=== PATIENT | male | born 1955 | race Caucasian/White ===

== ENCOUNTER 2017-03-20 12:40 | Observation (INO) | payer OTHER ==
[~2017-03-20] VITALS: Ht 175.3 cm; Wt 102.0 kg
[2017-03-20] VITALS (9 sets, daily range): BP systolic 92–137; BP diastolic 56–85; PULSE 68–80; RESP 15–20; Ht 175.3 cm; Wt 102.0 kg
[~2017-03-20 12:40] MED LIST: AMLO-218 PO; CEFAZOLIN 1 GM INJ ONE; DEXAMETHASONE 4 MG/ML 1 ML INJ ONE; HYDR-3671 PO; LISI10TA2 PO; ONDANSETRON 4 MG INJ ONE; PRAV10TA43 PO
[2017-03-20] MEDS ORDERED: ASPI-664 PO (13:26)
[2017-03-20] MEDS ORDERED: CHOL400T10 PO (13:29)
[2017-03-20] MEDS ORDERED: SOD CHLORIDE 0.9% 1,000 ML IV SCH (14:00)
[2017-03-20] MEDS ORDERED: CEFAZOLIN 2 GM/50 ML (PMX) 50 ML IVPB ONE (14:00)
--- NOTE | 2017-03-20 14:25 | RADRPT ---
PROCEDURE: XR Chest AP portable CLINICAL INDICATION: Preop, hernia repair TECHNIQUE: An AP portable radiograph of the chest was submitted. COMPARISON: 05/27/2012 FINDINGS: Support Hardware: None Cardiovascular: The cardiovascular silhouette appears unremarkable except for persistent aortic tort uosity. Lung [place]: A suboptimal inspiration compresses lung parenchyma exaggerating the bibasilar intersti tial markings, but no alveolar infiltrate is evident. Pleural Spaces: No pneumothorax or pleural effusion is identified. Osseous Structures: The osseous structures appear intact. Soft Tissues: The soft tissues appear generous. IMPRESSION: 1. Aortic tortuosity without CHF. 2. Suboptimal inspiration compresses lung parenchyma with no discrete alveolar infiltrate evident. Physician Alyssa Date Time Electronically viewed and signed by Gris Clemente Physician on 03/20/2017 14:25 /
[2017-03-20] MEDS ORDERED: BUPIVACAINE 0.25% (MPF) 30 ML INJ ONE (16:36)
[2017-03-20] MEDS ORDERED: ROCURONIUM 50 MG INJ ONE (16:42)
[2017-03-20] MEDS ORDERED: LIDOCAINE 2% (SDV) 5 ML INJ ONE (16:42)
[2017-03-20] MEDS ORDERED: PROPOFOL 20 ML ONE (16:42)
[2017-03-20] MEDS ORDERED: FENTAnyl 50 MCG/ML VIAL ONE (16:48)
[2017-03-20] MEDS ORDERED: POLYMYXIN/BACITRACIN 1L IRRIG ONE (17:10)
[2017-03-20] MEDS ORDERED: BUPIVACAINE 0.25% (MPF) 30 ML INJ INJ ONE (17:30)
[2017-03-20] MEDS ORDERED: DIPHENHYDRAMINE 50 MG INJ IV PRN (17:30)
[2017-03-20] MEDS ORDERED: MEPERIDINE 25 MG INJ IV PRN (17:30)
[2017-03-20] MEDS ORDERED: HYDROmorphONE (0.2 MG/ML) 10ML SYG IV PRN ×2 (17:30)
[2017-03-20] MEDS ORDERED: OXYCODONE/ACETAMINOPHEN (5/325) TAB PO PRN (17:30)
[2017-03-20] MEDS ORDERED: METOCLOPRAMIDE 10 MG INJ IV PRN (17:30)
[2017-03-20] MEDS ORDERED: EPHEDrine SULFATE 50 MG/5 ML SYG IV PRN (17:30)
[2017-03-20] MEDS ORDERED: ONDANSETRON 4 MG INJ IV PRN ×2 (17:30→21:00)
[2017-03-20] MEDS ORDERED: FENTAnyl 50 MCG/ML VIAL IV PRN ×3 (17:30)
[2017-03-20] MEDS ORDERED: hydrALAzine 20 MG INJ IV PRN (17:30)
[2017-03-20] MEDS ORDERED: LABETALOL HCL 20MG INJ IV PRN (17:30)
[2017-03-20] MEDS ORDERED: NEOSTIGMINE 3 MG/3 ML SYRINGE ONE (17:36)
--- NOTE | 2017-03-20 17:36 | OPR ---
Date/Time of Note Date/Time of Note DATE: 03/20/17 TIME: 17:36 Operative Report Procedure Date: March 20, 2017 Preoperative Diagnosis incarcerated RIH Postoperative Diagnosis same Operation Performed open RIH repair with mesh right ilioinguinal block Surgeon: Myrtle HARRELL G. SEONG March 20, 2017 17:36
[2017-03-20] MEDS ORDERED: GLYCOPYRROLATE 0.4 MG INJ ONE (17:37)
[2017-03-20] MEDS: HYDROmorphONE (0.2 MG/ML) 10ML SYG IV PRN ×2 (17:55→18:11)
[2017-03-20] MEDS ORDERED: INSULIN ASPART [NOVOLOG] 3 ML PEN SC ONE (18:00)
[2017-03-20] MEDS ORDERED: HYDROCODONE/APAP (5/325) TAB PO ONE (18:00)
--- NOTE | 2017-03-20 18:00 | OPPN ---
Date/Time of Note Date/Time of Note DATE: 03/20/17 TIME: 17:59 Post-Anesthesia Notes Post-Anesthesia Note Last documented vital signs Vital Signs Date Time Temp Pulse Resp B/P Pulse Ox O2 Delivery O2 Flow Rate FiO2 03/20/17 17:47 98.9 03/20/17 17:45 78 18 116/67 90 Room Air Activity: WNL Respiratory function: WNL Cardiovascular function: WNL Mental status: Baseline Pain reasonably controlled: Yes Hydration appropriate: Yes Nausea/Vomiting absent: Yes RIK AGUSTIN March 20, 2017 18:00
--- NOTE | 2017-03-20 18:06 | OPR ---
DATE OF OPERATION: 03/20/2017 INDICATION: This is a 62-year-old male with a right inguinal hernia. He requests surgical repair. Risks, alternatives, benefits, and personnel were discussed with the patient. The patient expresse d understanding and consents to the operation. PREOPERATIVE DIAGNOSIS: Right inguinal hernia. POSTOPERATIVE DIAGNOSIS: Incarcerated right inguinal hernia. PROCEDURES: 1. Open incarcerated right inguinal hernia repair with large size UltraPro hernia system mesh. 2. Right ilioinguinal block. SURGEON: Georgette Do MD SPECIMEN: None. COMPLICATIONS: None. ANESTHESIA: General. DESCRIPTION OF PROCEDURE: The patient was taken to the OR and prepped and draped in the usual steri le fashion. Surgical timeout was performed. IV antibiotics were given. Right inguinal oblique inc ision was made with a 10 blade. Dissection cautery was carried down to the external oblique fascia which was opened with a 15 blade. This incision is extended medial inferiorly and lateral superiorl y with Metzenbaum scissors. Cord structures were identified and encircled with a Ye drain. In direct hernia was reduced manually. The disk portion of the UltraPro hernia system mesh is secured in place with running 0 Prolene from the pubic tubercle along the shelving edge of the inguinal liga ment and superiorly to the internal oblique with interrupted 3-0 Vicryl. Onlay mesh was secured in a similar fashion with a running 0 Prolene from the pubic tubercle along the shelving edge of the in guinal ligament. Straps were created and reapproximated with interrupted 0 plain to recreate the in guinal ring. Onlay mesh was secured to the internal oblique with interrupted 3-0 Vicryl. External oblique fascia was closed with running 0 Vicryl. Kalie's was closed with interrupted 3-0 Vicryl. Skin was closed using skin matilda. Local anesthesia was injected into the incision line. A right ilioinguinal block was performed by identifying the ASIS, and 2 cm medial and inferior to that site in a fanning motion, local anesthesia was injected. Dry dressings were applied. Dictated By: GEORGETTE CUMMINGS/JOMAR Conf#: [id number] DID#: [id number]
[2017-03-20] MEDS ORDERED: DIPHENHYDRAMINE 25 MG CAP PO ONE (19:30)
[2017-03-21 00:05] VITALS: BP 119/60; RESP 18
[2017-03-21 00:30] VITALS: BP 120/62; PULSE 60; RESP 18
[2017-03-21] MEDS: morphine 2 MG INJ IV PRN ×2 (02:06→05:32)
[2017-03-21] MEDS ORDERED: DIPHENHYDRAMINE 25 MG CAP PO PRN (02:30)
[2017-03-21 05:50] LABS: ADD SCAN DIFF NO
[2017-03-21 05:55] LABS: BASOPHIL # 0.1 10^3/ul (0.0-0.1); BASOPHILS % 0.5 % (0.0-2.0); EOSINOPHILS # 0.1 10^3/ul (0.0-0.5); HEMATOCRIT 45.1 % (42.0-52.0); HEMOGLOBIN 14.9 g/dl (14.0-18.0); LYMPHOCYTES # 2.1 10^3/ul (0.8-2.9); LYMPHOCYTES % 16.8 % (15.0-51.0); MEAN CORPUSCULAR HEMOGLOBIN 29.7 pg (29.0-33.0); MEAN PLATELET VOLUME 9.9 fl (7.4-10.4); MONOCYTE # 1.2 10^3/ul (0.3-0.9); MONOCYTES % 9.8 % (0.0-11.0); NEUTROPHIL # 8.9 10^3/ul (1.6-7.5); NEUTROPHILS % 71.4 % (39.0-77.0); PLATELET COUNT 213 10^3/UL (140-415); RED BLOOD COUNT 5.01 10^6/ul (4.70-6.10); RED CELL DISTRIBUTION WIDTH 13.2 % (11.5-14.5); WHITE BLOOD COUNT 12.4 10^3/ul (4.8-10.8)
[2017-03-21 06:23] LABS: POTASSIUM 4.3 mmol/L (3.5-5.1)
[2017-03-21 06:26] LABS: CREATININE 1.41 mg/dl (0.61-1.24)
[2017-03-21 08:06] VITALS: BP 128/72; RESP 16
[2017-03-21] MEDS ORDERED: HYDROmorphONE 1 MG/ML SYG IM STA (09:36)
[2017-03-21] MEDS ORDERED: HYDROmorphONE 1 MG/ML SYG IV PRN (10:00)
--- NOTE | 2017-03-21 12:04 | PN ---
Date/Time of Note Date/Time of Note DATE: 03/21/17 TIME: 12:03 Assessment/Plan VTE Prophylaxis VTE Prophylaxis Intervention: SCD's Lines/Catheters IV Catheter Type (from Nrsg): Peripheral IV Urinary Cath still in place: No Assessment/Plan Chief Complaint/Hosp Course s/p RIH repair with mesh but with pain control issues and urinary retention issues may need another day of obs before ready to go home Problems: Assessment/Plan continue current care Subjective 24 Hr Interval Summary Free Text/Dictation had some pain control issues and dizziness yesterday after anesthesia, additionally had some urinary retention issues Exam/Review of Systems Vital Signs Vitals Vital Signs Date Time Temp Pulse Resp B/P Pulse Ox O2 Delivery O2 Flow Rate FiO2 03/21/17 08:06 98.0 90 16 128/72 96 03/21/17 00:30 Room Air Intake and Output 03/20/17 03/20/17 03/21/17 15:00 23:00 07:00 Intake Total 900 ml 400 ml Output Total 10 ml 0 ml Balance 890 ml 400 ml Exam c/d/i Results Result Diagram: 03/21/17 0438 03/21/17 0438 Results 24 hrs Laboratory Tests Test 03/20/17 14:21 03/20/17 21:51 03/21/17 04:38 Bedside Glucose 82 129 White Blood Count 12.4 #H Red Blood Count 5.01 Hemoglobin 14.9 Hematocrit 45.1 Mean Corpuscular Volume 90.0 Mean Corpuscular Hemoglobin 29.7 Mean Corpuscular Hemoglobin Concent 33.0 Red Cell Distribution Width 13.2 Platelet Count 213 Mean Platelet Volume 9.9 # Neutrophils % 71.4 Lymphocytes % 16.8 Monocytes % 9.8 Eosinophils % 1.0 Basophils % 0.5 Nucleated Red Blood Cells % 0.0 Neutrophils # 8.9 H Lymphocytes # 2.1 Monocytes # 1.2 H Eosinophils # 0.1 Basophils # 0.1 Nucleated Red Blood Cells # 0.0 Sodium Level 139 Potassium Level 4.3 Chloride Level 98 Carbon Dioxide Level 26 Anion Gap 19 H Blood Urea Nitrogen 19 Creatinine 1.41 H Glucose Level 93 Calcium Level 9.0 Medications Medications Current Medications Morphine Sulfate (morphine) 2 mg Q2H PRN IV PAIN Last administered on t 05:32; Admin Dose 2 MG; Start 03/20/17 at 21:00 Ondansetron HCl (Zofran Inj) 4 mg Q6H PRN IV NAUSEA AND/OR VOMITING; Start at 21:00 Diphenhydramine HCl (Benadryl) 25 mg Q6H PRN PO ITCHING Last administered on t 02:29; Admin Dose 25 MG; Start 03/21/17 at 02:30 Hydromorphone HCl (Dilaudid) 0.5 mg Q4H PRN IV PAIN; Start 03/21/17 at 10:00 Myrtle HARRELL March 21, 2017 12:04
--- NOTE | 2017-03-21 12:49 | HP ---
Date/Time of Note Date/Time of Note DATE: 03/21/17 TIME: 12:46 Assessment/Plan VTE Prophylaxis VTE Prophylaxis Intervention: other Lines/Catheters IV Catheter Type (from Nrs): Peripheral IV Urinary Cath still in place: No Assessment/Plan Chief Complaint/Hosp Course 1) hernia - s/p repair 2) sore throat - monitor, probably due to intubation for surgery 3) urinary obstruction - monitor - try flomax Problems: HPI/ROS Admit Date/Time Admit Date/Time March 20, 2017 at 20:37 Hx of Present Illness Patient with hypertension and hypercholesterolemia comes in for hernia repair. Patient tolerated the procedure but is now having difficulty with urinary obstruction and sore throat. Patient is admitted for further observation. Patient has noted in the past to have nocturia 1-2 times per night but never had urinary obstruction. PMH/Family/Social Past Medical History Medical History: high cholesterol, hypertension Social History Smoking Status: Never smoker Exam/Review of Systems Vital Signs Vitals Vital Signs Date Time Temp Pulse Resp B/P Pulse Ox O2 Delivery O2 Flow Rate FiO2 03/21/17 08:06 98.0 90 16 128/72 96 03/21/17 00:30 Room Air Intake and Output 03/20/17 03/20/17 03/21/17 15:00 23:00 07:00 Intake Total 900 ml 400 ml Output Total 10 ml 0 ml Balance 890 ml 400 ml Exam Constitutional: well developed Head: atraumatic, normocephalic Neck: supple Respiratory: clear to auscultation Cardiovascular: regular rate and rhythm Gastrointestinal: non-tender, soft Extremities: normal pulses Labs Result Diagram: 03/21/17 0438 03/21/17 0438 Medications Medications Current Medications Ondansetron HCl (Zofran Inj) 4 mg Q6H PRN IV NAUSEA AND/OR VOMITING; Start at 21:00 Diphenhydramine HCl (Benadryl) 25 mg Q6H PRN PO ITCHING Last administered on t 02:29; Admin Dose 25 MG; Start 03/21/17 at 02:30 Hydromorphone HCl (Dilaudid) 0.5 mg Q4H PRN IV PAIN; Start 03/21/17 at 12:30 ELIZABET CABEZAS March 21, 2017 12:49
[2017-03-21] MEDS: HYDROmorphONE 1 MG/ML SYG IV PRN ×4 (12:51→22:18)
[2017-03-21] MEDS: ASPIRIN (EC) 81 MG TAB PO SCH (14:53)
[2017-03-21] MEDS: LISINOPRIL 10 MG TAB PO SCH (14:54)
[2017-03-21] MEDS: CHOLECALCIFEROL 400 UNITS TAB PO SCH (14:54)
[2017-03-21] MEDS: AMLODIPINE 10 MG TAB PO SCH (14:59)
[2017-03-21] MEDS ORDERED: HYDROmorphONE 1 MG/ML SYG IV STA (15:40)
[2017-03-21] MEDS: AL HYDROX/MG HYDROX/SIMETH 30 ML CUP PO PRN (17:47)
[2017-03-21] MEDS: PANTOPRAZOLE (EC) 40 MG TAB PO SCH (19:02)
[2017-03-21 19:48] VITALS: BP 119/68; RESP 20
[2017-03-21] MEDS: TAMSULOSIN (SR) 0.4 MG CAP PO SCH (21:06)
[2017-03-21] MEDS: ATORVASTATIN 10 MG TAB PO SCH (21:06)
[2017-03-22] MEDS: HYDROmorphONE 1 MG/ML SYG IV PRN ×7 (01:50→22:02)
[2017-03-22] MEDS: PANTOPRAZOLE (EC) 40 MG TAB PO SCH ×2 (05:28→19:02)
[2017-03-22 08:02] VITALS: BP 126/76; RESP 18
[2017-03-22] MEDS: AMLODIPINE 10 MG TAB PO SCH (08:43)
[2017-03-22] MEDS: ASPIRIN (EC) 81 MG TAB PO SCH (08:43)
[2017-03-22] MEDS: CHOLECALCIFEROL 400 UNITS TAB PO SCH (08:43)
[2017-03-22] MEDS: LISINOPRIL 10 MG TAB PO SCH (08:43)
--- NOTE | 2017-03-22 13:11 | PN ---
Date/Time of Note Date/Time of Note DATE: 03/22/17 TIME: 13:10 Assessment/Plan VTE Prophylaxis VTE Prophylaxis Intervention: other Lines/Catheters IV [facility]ter Type (from [facility] Saline Lock Urinary Cath still in place: No Assessment/Plan Chief Complaint/Hosp Course 1) hernia - s/p repair 2) sore throat - monitor, probably due to intubation for surgery 3) urinary obstruction - monitor - try flomax Problems: Subjective 24 Hr Interval Summary Free Text/Dictation Patient is urination again without difficulty, still weak though Exam/Review of Systems Vital Signs Vitals Vital Signs Date Time Temp Pulse Resp B/P Pulse Ox O2 Delivery O2 Flow Rate FiO2 03/22/17 08:02 98.7 99 18 126/76 100 03/21/17 00:30 Room Air Intake and Output 03/21/17 03/21/17 03/22/17 15:00 23:00 07:00 Intake Total 200 ml 250 ml 1150 ml Output Total 500 ml 500 ml 1000 ml Balance -300 ml -250 ml 150 ml Exam Constitutional: well developed Head: atraumatic, normocephalic Neck: jvd, supple Respiratory: clear to auscultation Cardiovascular: regular rate and rhythm Gastrointestinal: non-tender, soft Extremities: normal pulses Results Result Diagram: 03/21/17 0438 03/21/17 0438 Medications Medications Current Medications Ondansetron HCl (Zofran Inj) 4 mg Q6H PRN IV NAUSEA AND/OR VOMITING; Start at 21:00 Diphenhydramine HCl (Benadryl) 25 mg Q6H PRN PO ITCHING Last administered on 02:29; Admin Dose 25 MG; Start 03/21/17 at 02:30 Amlodipine Besylate (Norvasc) 10 mg DAILY PO Last administered on 03/22/17 08: 43; Admin Dose 10 MG; Start 03/21/17 at 13:00 Aspirin (Halfprin) 81 mg DAILY PO Last administered on 03/22/17 08:43; Admin Dose 81 MG; Start 03/21/17 at 13:00 Cholecalciferol (Vitamin D) 800 units DAILY PO Last administered on 03/22/17 08:43; Admin Dose 800 UNITS; Start 03/21/17 at 14:00 Hydralazine HCl (Apresoline) 25 mg TID PO Last administered on 03/22/17 08:44 ; Admin Dose 25 MG; Start 03/21/17 at 13:00 Lisinopril (Zestril) 10 mg DAILY PO Last administered on 03/22/17 08:43; Admin Dose 10 MG; Start 03/21/17 at 13:00 Atorvastatin Calcium (Lipitor) 10 mg HS PO Last administered on 03/21/17 21:06 ; Admin Dose 10 MG; Start 03/21/17 at 21:00 Tamsulosin HCl (Flomax) 0.4 mg HS PO Last administered on 03/21/17 21:06; Admin Dose 0.4 MG; Start 03/21/17 at 21:00 Hydromorphone HCl (Dilaudid) 1 mg Q3H PRN IV PAIN Last administered on 12:25; Admin Dose 1 MG; Start 03/21/17 at 18:00 Pantoprazole (Protonix Tab) 40 mg BID@06,18 PO Last administered on 03/22/17 05:28; Admin Dose 40 MG; Start 03/21/17 at 18:00 Al Hydrox/Mg Hydrox/Simethicone (Mag-Al Plus) 30 ml Q4H PRN PO HEARTBURN Last administered on 03/21/17 17:47; Admin Dose 30 ML; Start 03/21/17 at 17:30 ELIZABET CABEZAS March 22, 2017 13:11
--- NOTE | 2017-03-22 13:25 | CONS ---
DATE OF ADMISSION: 03/20/2017 DATE OF CONSULTATION: 03/22/2017 REQUESTING PHYSICIAN: Dr. Anders and Dr. Najma Kirby REASON FOR CONSULTATION: Urinary retention, postoperative right inguinal hernia repair. HISTORY OF PRESENT ILLNESS: The patient is a 62-year-old male who was admitted to the hospital on 0 03/20/2017, underwent a right inguinal hernia and, in the postoperative period, the patient was not a ble to urinate, he had to be catheterized every 6 hours. Therefore, a urological consultation was r equested. The patient states that usually at home he urinates 1 to 2 times at night and during the day he urinates 3 times. His urinary stream is medium. He denies any dysuria, no hematuria, and no prior urinary retention or urinary symptoms that required any treatment. He, however, does have a history of hypertension and high cholesterol. SOCIAL HISTORY: He does not smoke, does not drink any alcohol. MEDICATIONS: The medications that he is on presently: 1. Since he was not able to urinate, he was started on tamsulosin yesterday at 0.4 mg at bedtime da antonia. 2. He is also on atorvastatin 10 mg daily. 3. Dilaudid for the pain. 4. Protonix 40 mg twice a day. 5. Mag-al Plus p.r.n. for heartburn. 6. Vitamin D. 7. Norvasc 10 mg daily. 8. Aspirin 81 mg daily. 9. Apresoline 25 mg 3 times a day. 10. Lisinopril 10 mg daily. 11. Benadryl p.r.n. 12. Zofran p.r.n. PHYSICAL EXAMINATION: GENERAL: Reveals a well-developed male who complains of pain from his surgical site. He weighs 102 kilograms. He is 69 inches tall. VITAL SIGNS: Temperature is 98.7, pulse 99, respiration 18, blood pressure 126/76. HEAD AND NECK: Unremarkable. ABDOMEN: Obese. There is a scar in the right inguinal area with matilda from his recent right ingu inal hernia repair. GENITALIA: External genitalia are normal. RECTAL: Examination revealed soft prostate that does not appear to be enlarged. EXTREMITIES: Reveal no edema. LABORATORY DATA: CBC shows a white count of 12.4, hemoglobin 14.9, hematocrit 35.1. BUN is 19, cre atinine is 1.41. Electrolytes are normal. Urine culture: No growth after 24 hours. IMPRESSION: Urinary retention postop, however, the patient is improving and he just voided about an hour ago and I did a bladder scan on him and the bladder scan showed the bladder has only 48 mL per minute. Therefore, at the present, he is not on any urinary retention; therefore from a urological standpoint, the patient may be discharged to home today and it would be better that he continue the Tamsulosin 0.4 mg daily for the next month so to allow him to heal and facilitate his voiding. Dictated By: HARISH SAUL/JOMAR Conf#: [id number] DID#: [id number]
[2017-03-22] MEDS: AL HYDROX/MG HYDROX/SIMETH 30 ML CUP PO PRN ×2 (14:33→20:12)
--- NOTE | 2017-03-22 16:48 | PN ---
DATE: 03/22/2017 SUBJECTIVE: Status post right inguinal hernia operation 2 days ago, status post urinary retention post-operation. Dr. Do has asked me to see the patient yesterday and today following for him. Apparently, yesterday the patient had urinary retention and he was in too much pain. They had to straight catheterize him, actually the nurse had to straight catheterize him every 6 hours, and I have requested a consultation with Dr. Riddle, Urology, today. Today, patient has been able to urinate and Dr. Riddle has seen the patient, but he does not have any problem with urination, but he is still suffering a lot of pain in the site of the operation. OBJECTIVE: VITAL SIGNS: Temperature 98.7, 99 heart rate, respirations 18, blood pressure 126/76, saturation 100% on room air. LABS: No new labs today. PHYSICAL EXAMINATION: Wound is clean. PLAN: Since the patient is not controlled well for pain, we will try to keep him overnight for better control of the pain and then patient will be discharged home tomorrow hopefully. Dictated By: EZ METZ/JOMAR Conf#: [id number] DID#: [id number] MTDD
[2017-03-22 20:01] VITALS: BP 135/97; RESP 16
[2017-03-22] MEDS: TAMSULOSIN (SR) 0.4 MG CAP PO SCH (20:12)
[2017-03-22] MEDS: ATORVASTATIN 10 MG TAB PO SCH (20:12)
[2017-03-23] MEDS: AL HYDROX/MG HYDROX/SIMETH 30 ML CUP PO PRN ×4 (00:05→12:50)
[2017-03-23] MEDS: HYDROmorphONE 1 MG/ML SYG IV PRN (01:56)
[2017-03-23] MEDS: HYDROCODONE/APAP (5/325) TAB PO PRN ×3 (02:09→14:32)
[2017-03-23 05:18] LABS: ADD SCAN DIFF NO
[2017-03-23 05:23] LABS: BASOPHIL # 0.1 10^3/ul (0.0-0.1); BASOPHILS % 0.6 % (0.0-2.0); EOSINOPHILS # 0.2 10^3/ul (0.0-0.5); EOSINOPHILS % 1.6 % (0.0-7.0); HEMATOCRIT 46.4 % (42.0-52.0); HEMOGLOBIN 15.7 g/dl (14.0-18.0); LYMPHOCYTES % 16.9 % (15.0-51.0); MEAN CORPUSCULAR HEMOGLOBIN 29.9 pg (29.0-33.0); MEAN CORPUSCULAR HGB CONC 33.8 g/dl (32.0-37.0); MEAN CORPUSCULAR VOLUME 88.4 fl (82.0-101.0); MEAN PLATELET VOLUME 9.9 fl (7.4-10.4); MONOCYTE # 1.3 10^3/ul (0.3-0.9); MONOCYTES % 10.8 % (0.0-11.0); NEUTROPHIL # 8.2 10^3/ul (1.6-7.5); NEUTROPHILS % 69.7 % (39.0-77.0); PLATELET COUNT 225 10^3/UL (140-415); RED BLOOD COUNT 5.25 10^6/ul (4.70-6.10); RED CELL DISTRIBUTION WIDTH 12.8 % (11.5-14.5); WHITE BLOOD COUNT 11.7 10^3/ul (4.8-10.8)
[2017-03-23 05:56] LABS: CALCIUM 11.1 mg/dl (8.4-10.2); CREATININE 1.48 mg/dl (0.61-1.24); POTASSIUM 4.4 mmol/L (3.5-5.1)
[2017-03-23] MEDS: PANTOPRAZOLE (EC) 40 MG TAB PO SCH (06:14)
[2017-03-23 08:00] VITALS: BP 134/80; RESP 18
[2017-03-23] MEDS: AMLODIPINE 10 MG TAB PO SCH (08:33)
[2017-03-23] MEDS: ASPIRIN (EC) 81 MG TAB PO SCH (08:33)
[2017-03-23] MEDS: LISINOPRIL 10 MG TAB PO SCH (08:34)
[2017-03-23] MEDS: CHOLECALCIFEROL 400 UNITS TAB PO SCH (08:34)
--- NOTE | 2017-03-23 10:37 | DS ---
Date/Time of Note Date/Time of Note DATE: 03/23/17 TIME: 10:34 Discharge Summary Admission/Discharge Info Admit Date/Time March 20, 2017 at 20:37 Discharge Date/Time 03/23/17 Final Diagnosis 1) inguinal hernia 2) urinary incontinence Hx of Present Illness Patient with hypertension and hypercholesterolemia comes in for hernia repair. Patient tolerated the procedure but is now having difficulty with urinary obstruction and sore throat. Patient is admitted for further observation. Patient has noted in the past to have nocturia 1-2 times per night but never had urinary obstruction. Hospital Course Patient underwent hernia repair for inguinal hernia. Patient tolerated the procedure but his recovery was complicated by urinary obstruction. The obstruction resolved within 24 hours. Patient was given flomax but he felt that the problem was related to the anesthesia related to the surgery and not BPH. Once felt to be stable per surgery, he was sent home. 1) hernia - s/p repair 2) sore throat - stable 3) urinary obstruction - resolved Home Meds Reported Medications Cholecalciferol* (Vitamin D*) 400 Unit Tablet, 800 UNIT PO DAILY, TAB 03/20/17 Aspirin* (Aspirin* EC) 81 Mg Tablet.dr, 81 MG PO DAILY, TAB 03/20/17 Pravastatin Sodium* (Pravastatin Sodium*) 10 Mg Tablet, 10 MG PO HS, TAB 10/14/14 Hydralazine Hcl* (Hydralazine Hcl*) 25 Mg Tab, 25 MG PO TID, TAB 10/14/14 Lisinopril* (Lisinopril*) 10 Mg Tablet, 10 MG PO DAILY, TAB 10/14/14 Amlodipine Besylate* (Norvasc*) 10 Mg Tablet, 10 MG PO DAILY, TAB 10/14/14 Primary Care Provider Geo Kilpatrick Pending Labs Laboratory Tests Test 03/23/17 04:34 White Blood Count 11.710^3/ul (4.8-10.8) Red Blood Count 5.2510^6/ul (4.70-6.10) Hemoglobin 15.7g/dl (14.0-18.0) Hematocrit 46.4% (42.0-52.0) Mean Corpuscular Volume 88.4fl (82.0-101.0) Mean Corpuscular Hemoglobin 29.9pg (29.0-33.0) Mean Corpuscular Hemoglobin Concent 33.8g/dl (32.0-37.0) Red Cell Distribution Width 12.8% (11.5-14.5) Platelet Count 48224^3/UL (140-415) Mean Platelet Volume 9.9fl (7.4-10.4) Neutrophils % 69.7% (39.0-77.0) Lymphocytes % 16.9% (15.0-51.0) Monocytes % 10.8% (0.0-11.0) Eosinophils % 1.6% (0.0-7.0) Basophils % 0.6% (0.0-2.0) Nucleated Red Blood Cells % 0.0/100WBC (0.0-0.0) Neutrophils # 8.210^3/ul (1.6-7.5) Lymphocytes # 2.010^3/ul (0.8-2.9) Monocytes # 1.310^3/ul (0.3-0.9) Eosinophils # 0.210^3/ul (0.0-0.5) Basophils # 0.110^3/ul (0.0-0.1) Nucleated Red Blood Cells # 0.010^3/ul (0.0-0.0) Sodium Level 140mmol/L (135-144) Potassium Level 4.4mmol/L (3.5-5.1) Chloride Level 95mmol/L (97-110) Carbon Dioxide Level 32mmol/L (21-31) Anion Gap 17 (8-16) Blood Urea Nitrogen 27mg/dl (7-20) Creatinine 1.48mg/dl (0.61-1.24) Glucose Level 125mg/dl (70-220) Calcium Level 11.1mg/dl (8.4-10.2) ELIZABET CABEZAS March 23, 2017 10:37
== END 2017-03-23 14:39 | disposition home or self-care (01) ==
LOC: SDS 12:40 → MS1 20:37 → SDS 20:37 → MS1 20:50
PROVIDERS: ADMIT Surgery; ATTEND Surgery
DX: N39.498 Other specified urinary incontinence (principal); K40.30 Unilateral inguinal hernia, with obstruction, without gangrene, not specified as recurrent; J02.9 Acute pharyngitis, unspecified
CPT/HCPCS: 49507; 71010; 80048; 82962; 85025; 87086; 96372; 96374; 96375; 96376; C1781; J0690; J1100; J1170; J2175; J2270; J2405; J2710; J2765; J3010; Z7500; Z7512; Z7610; A4310; G0378

== ENCOUNTER 2017-11-03 10:56 | Emergency (ER) | END 2017-11-03 16:47 | disposition home or self-care (01) ==

== ENCOUNTER 2019-06-07 11:43 | Day surgery (SDC) | payer OTHER ==
[~2019-06-07] VITALS: Ht 175.3 cm; Wt 99.6 kg
[~2019-06-07 11:43] MED LIST changes: +ALBU18HF INHALATION; +ASPI-817 PO; -CEFAZOLIN 1 GM INJ ONE; +CHOL400T10 PO; -DEXAMETHASONE 4 MG/ML 1 ML INJ ONE; +DOXY100T20 PO; +GUAI5SYR2 PO; -ONDANSETRON 4 MG INJ ONE; +PRED20TA PO; +PRILOSEC
[2019-06-07 12:59] VITALS: Ht 175.3 cm; Wt 99.6 kg
[2019-06-07 14:07] VITALS: BP 138/82; PULSE 68; RESP 16
--- NOTE | 2019-06-07 14:11 | PREAC ---
Date/Time of Note Date/Time of Note DATE: 06/07/19 TIME: 14:09 Anesthesia Eval and Record Evaluation Time Pre-Procedure Interview DATE: 06/07/19 TIME: 14:09 Age 64 Sex male NPO: 8 hrs Preoperative diagnosis SCREENING Planned procedure COLONOSCOPY Past Medical History Past Medical History: Includes Cardio: HTN, Dyslipidemia Endo: Diabetes Neuro: CVA Surgery & Anesthesia Issues No known issue Meds Anticoagulation: No Beta Tung within 24 hr: No Reason Beta Tung not given: Pt. not on B-Tung Reported Medications [Prilosec] No Conflict Check 06/07/19 Aspirin* (Aspirin* EC) 81 Mg Tablet.dr, 81 MG PO DAILY, TAB 03/20/17 Hydralazine Hcl* (Hydralazine Hcl*) 25 Mg Tab, 25 MG PO TID, TAB 10/14/14 Lisinopril* (Lisinopril*) 10 Mg Tablet, 10 MG PO DAILY, TAB 10/14/14 Discontinued Reported Medications Cholecalciferol* (Vitamin D*) 400 Unit Tablet, 800 UNIT PO DAILY, TAB 03/20/17 Pravastatin Sodium* (Pravastatin Sodium*) 10 Mg Tablet, 10 MG PO HS, TAB 10/14/14 Amlodipine Besylate* (Norvasc*) 10 Mg Tablet, 10 MG PO DAILY, TAB 10/14/14 Discontinued Scripts Guaifenesin-Dextromethorphan* (Robitussin* DM) 100MG/10MG/5ML Syrup, 10 ML PO Q4H PRN for COUGH, #20 ML Prov:LIVAN ROY DO 11/03/17 Doxycycline Hyclate* (Doxycycline Hyclate*) 100 Mg Tablet.dr, 100 MG PO BID, #20 TAB Prov:GREENROBERTLIVAN DO 11/03/17 Prednisone* (Prednisone*) 20 Mg Tab, 40 MG PO DAILY, #20 TAB Prov:GREENLIVAN DO 11/03/17 Albuterol Sulfate* (Ventolin HFA*) 18 Gm Hfa.aer.ad, 2 PUFF INHALATION Q4H, #1 INHALER Prov:GREENELHAMLIVAN DO 11/03/17 Meds reviewed: Yes Allergies Coded Allergies: No Known Allergy (Unverified , 11/03/17) Allergies Reviewed: Yes Labs/Studies Labs Reviewed: Reviewed by anesthesiologist test: N/A Pre-procedure Exam Last vitals Vital Signs Date Temp Pulse Resp B/P (MAP) Pulse Ox O2 O2 Flow FiO2 Time Delivery Rate 06/07/19 97.8 68 16 138/82 97 Room Air 14:07 (100) Airway: Adequate mouth opening, Adequate thyromental dist Mallampati: Mallampati II Teeth: Normal Lung: Normal Heart: Normal ASA Physical Status ASA physical status: 3 Emergency: None Planned Anesthetic General/MAC: MAC Planned Pain Management Parenteral pain med Pre-operative Attestations Prior to commencing anesthesia and surgery, the patient was re-evaluated, there was verification of: *The patient's identity *The results of appropriate recent lab work and preoperative vital signs *The above evaluation not changing prior to induction *Anesthetic plan, risk benefits, alternative and complications discussed with patient/family; questions answered; patient/family understands, accepts and wishes to proceed. RIK AGUSTIN Jun 07, 2019 14:11
--- NOTE | 2019-06-07 15:44 | PAC ---
Date/Time of Note Date/Time of Note DATE: 06/07/19 TIME: 15:44 Post-Anesthesia Notes Post-Anesthesia Note Last documented vital signs Vital Signs Date Temp Pulse Resp B/P (MAP) Pulse Ox O2 O2 Flow FiO2 Time Delivery Rate 06/07/19 97.8 68 16 138/82 97 Room Air 1544 (100) Activity: WNL Respiratory function: WNL Cardiovascular function: WNL Mental status: Baseline Pain reasonably controlled: Yes Hydration appropriate: Yes Nausea/Vomiting absent: Yes RIK AGUSTIN Jun 07, 2019 15:44
[2019-06-07] MEDS ORDERED: LABETALOL HCL 20MG INJ IV PRN (16:00)
[2019-06-07] MEDS ORDERED: ONDANSETRON 4 MG INJ IV PRN (16:00)
[2019-06-07] MEDS ORDERED: FENTAnyl 50 MCG/ML VIAL IV PRN (16:00)
[2019-06-07] MEDS ORDERED: EPHEDrine 25 MG/5 ML SYG IV PRN (16:00)
[2019-06-07 16:02] VITALS: BP 113/72; RESP 15
== END 2019-06-07 16:43 | disposition home or self-care (01) ==
LOC: GIL 11:43
PROVIDERS: ATTEND Internal Medicine Gastroenterology
DX: Z12.11 Encounter for screening for malignant neoplasm of colon (principal); D12.5 Benign neoplasm of sigmoid colon; K57.30 Diverticulosis of large intestine without perforation or abscess without bleeding; K64.8 Other hemorrhoids; I12.9 Hypertensive chronic kidney disease with stage 1 through stage 4 chronic kidney disease, or unspecified chronic kidney disease; E11.22 Type 2 diabetes mellitus with diabetic chronic kidney disease; N18.9 Chronic kidney disease, unspecified; G47.00 Insomnia, unspecified; Z86.73 Personal history of transient ischemic attack (TIA), and cerebral infarction without residual deficits
CPT/HCPCS: 45380; 82962; 88305; Z7610